=== PATIENT | male | born 1945 ===

== ENCOUNTER 2017-07-03 11:12 | Emergency (ER) | payer OTHER ==
[2017-07-03 11:33] VITALS: BP 137/67; PULSE 62; RESP 20; TEMP 97.1; O2SAT 97
[2017-07-03 11:34] VITALS: BMI 25.2
[2017-07-03] MEDS ORDERED: Tmp-Smz 800 mg-160 mg DS Tab PO STA (12:28)
--- NOTE | 2017-07-03 12:28 | ED PDOC ---
HPI: Skin/Bite Injury Time Seen by Provider: 07/03/17 11:58 Chief Complaint (Provider): Abscess History Per: Patient Additional Complaint(s): 72 yo male, PMH of DM and HTN, presents to ED for 5 days of red, swollen, painful mass to mid back. Past Medical History Reviewed: Nursing Documentation, Vital Signs Vital Signs: Last Vital Signs Temp 97.1 F L 07/03/17 11:33 Pulse 62 07/03/17 11:33 Resp 20 07/03/17 11:33 BP 137/67 07/03/17 11:33 Pulse Ox 97 07/03/17 12:27 - Medical History PMH: Diabetes, HTN - Surgical History Surgical History: No Surg Hx - Family History Family History: States: [place], Diabetes, Hypertension - Living Arrangements Living Arrangements: With Family - Social History Current smoker - smoking cessation education provided: No Alcohol: Social Drugs: Denies - Home Medications Home Medications: Ambulatory Orders Medication Instructions Recorded Cephalexin [Keflex] 500 mg PO BID #14 capsule 07/03/17 Ibuprofen [Motrin] 600 mg PO Q6 #20 tab 07/03/17 Sulfamethoxazole/Trimethoprim 1 tab PO BID 5 Days tab 07/03/17 [Bactrim DS 800 mg-160 mg] - Allergies Allergies/Adverse Reactions: Allergies Allergy/AdvReac Type Severity Reaction Status Date / Time No Known Allergies Allergy Verified 07/03/17 12:16 Review of Systems ROS Statement: Except As Marked, All Systems Reviewed And Found Negative Skin: Positive for: Other (abscess) Physical Exam - Reviewed Nursing Documentation Reviewed: Yes Vital Signs Reviewed: Yes - Physical Exam Appears: Positive for: Well, Non-toxic, No Acute Distress Head Exam: Positive for: ATRAUMATIC, NORMAL INSPECTION, NORMOCEPHALIC Skin: Positive for: Warm, Dry Eye Exam: Positive for: EOMI, Normal appearance, PERRL ENT: Positive for: Normal ENT Inspection Neck: Positive for: Normal, Painless ROM Cardiovascular/Chest: Positive for: Regular Rate, Rhythm Respiratory: Positive for: CNT, Normal Breath Sounds Gastrointestinal/Abdominal: Positive for: Normal Exam, Bowel Sounds, Soft Back: Positive for: Normal Inspection Extremity: Positive for: Normal ROM Neurologic/Psych: Positive for: Alert, Oriented Comments: Tender, non fluctuant, erythematous mass to back ~ 10 cm in diameter. centralized pustuale - ECG O2 Sat by Pulse Oximetry: 97 Medical Decision Making Medical Decision Making: Site incised and drained of small amount of puss, see procedure note Disposition - Clinical Impression Clinical Impression: Abscess - Patient ED Disposition Is Patient to be Admitted: No - Disposition Disposition: Routine/Home Disposition Time: 13:16 Condition: STABLE Prescriptions: Cephalexin [Keflex] 500 mg PO BID #14 capsule Ibuprofen [Motrin] 600 mg PO Q6 #20 tab Sulfamethoxazole/Trimethoprim [Bactrim DS 800 mg-160 mg] 1 tab PO BID 5 Days tab Instructions: Abscess (ED) Print Language: ICELANDIC - Incision & Drainage Of Abscess Anesthesia: Lidocaine 1% Prep Used: Sterile Water Procedure: Incised W/Scalpel Blade#: (11), Drained Pus, Irrigated Cavity W/ Saline
[2017-07-03] MEDS ORDERED: Lidocaine 1% Inj (20ml) ONE (12:44)
== END 2017-07-03 13:32 | disposition home or self-care (01) ==
LOC: H.ER 11:12
DX: L02.212 Cutaneous abscess of back [any part, except buttock and flank] (principal); E11.9 Type 2 diabetes mellitus without complications; I10 Essential (primary) hypertension

== ENCOUNTER 2017-07-09 09:46 | Emergency (ER) | payer OTHER ==
[2017-07-09 09:46] VITALS: BMI 25.2
[2017-07-09 09:51] VITALS: O2SAT 98
--- NOTE | 2017-07-09 10:24 | ED PDOC ---
HPI: Skin/Bite Injury Time Seen by Provider: 07/09/17 10:11 Chief Complaint (Nursing): Abnormal Skin Integrity History Per: Patient Onset/Duration Of Symptoms: Days (6) Current Symptoms Are (Timing): Better Location Of Injury: Posterior: Back Quality Of Symptoms: Itching Severity: Mild Additional Complaint(s): Seen 6 days ago for I&D abscess back. Placed on Bactrim and Keflex. Pt states improvement in size and pain. Denies fever. No new drainage. Past Medical History Vital Signs: Last Vital Signs Temp 98 F 07/09/17 09:50 Pulse 67 07/09/17 09:50 Resp BP 142/53 L 07/09/17 09:50 Pulse Ox 98 07/09/17 09:50 - Medical History PMH: Diabetes, HTN - Family History Family History: States: [place], Diabetes, Hypertension - Home Medications Home Medications: Ambulatory Orders Medication Instructions Recorded Cephalexin [Keflex] 500 mg PO BID #14 capsule 07/03/17 Ibuprofen [Motrin] 600 mg PO Q6 #20 tab 07/03/17 Sulfamethoxazole/Trimethoprim 1 tab PO BID 5 Days tab 07/03/17 [Bactrim DS 800 mg-160 mg] Cephalexin [Keflex] 500 mg PO BID #14 capsule 07/09/17 Sulfamethoxazole/Trimethoprim 1 tab PO BID #14 tab 07/09/17 [Bactrim DS 800 mg-160 mg] - Allergies Allergies/Adverse Reactions: Allergies Allergy/AdvReac Type Severity Reaction Status Date / Time No Known Allergies Allergy Verified 07/03/17 12:16 Review of Systems Constitutional: Negative for: Fever Skin: Positive for: Rash Physical Exam - Physical Exam Appears: Positive for: Non-toxic, No Acute Distress Skin: Positive for: Rash (3 cm area of erythema and induration mid back. Previuos note indicates area had been 10 cm. No fluctuance or drainage.) - ECG O2 Sat by Pulse Oximetry: 98 Medical Decision Making Medical Decision Making: Area ahas improved both subjectively as well as documented size with no fluctuance or drainage. Pt afebrile. Will Rx addl 1 week of Bactrim and Keflex with outpt f/u. Disposition - Clinical Impression Clinical Impression: Cellulitis - Patient ED Disposition Is Patient to be Admitted: No Counseled Patient/Family Regarding: Diagnosis, Need For Followup, Rx Given - Disposition Referrals: [facility] [Outside] Disposition: Routine/Home Disposition Time: 10:26 Condition: FAIR Prescriptions: Cephalexin [Keflex] 500 mg PO BID #14 capsule Sulfamethoxazole/Trimethoprim [Bactrim DS 800 mg-160 mg] 1 tab PO BID #14 tab Instructions: Cellulitis (ED) Print Language: MACEDONIAN
[2017-07-09 10:48] VITALS: BP 128/78; PULSE 78; RESP 17; TEMP 97.7
== END 2017-07-09 10:48 | disposition home or self-care (01) ==
LOC: H.ER 09:46
DX: E11.9 Type 2 diabetes mellitus without complications (principal); I10 Essential (primary) hypertension

== ENCOUNTER 2018-01-06 17:50 | Emergency (ER) | payer OTHER ==
[2018-01-06 17:50] VITALS: BMI 25.2
[2018-01-06 17:58] VITALS: BP 151/69; PULSE 73; RESP 16; TEMP 97.3; O2SAT 100
--- NOTE | 2018-01-06 18:57 | CT ---
PROCEDURE: CT HEAD WITHOUT CONTRAST. HISTORY: trauma COMPARISON: None available. TECHNIQUE: Axial computed tomography images were obtained through the head/brain without intravenous contrast. Radiation dose: Total exam DLP = 761.18 mGy-cm. This CT exam was performed using one or more of the following dose reduction techniques: Automated exposure control, adjustment of the mA and/or kV according to patient size, and/or use of iterative reconstruction technique. FINDINGS: HEMORRHAGE: No intracranial hemorrhage. BRAIN: Good corticomedullary differentiation is seen. Minimal, proportional diffuse expansion of the ventriculosulcal and cisternal spaces is appreciated with white matter lucency compatible with diffuse cerebral atrophy and chronic microangiopathy. No suspicious extra-axial fluid collection is identified and the midline brain anatomy appears grossly nonfocal as imaged. There is no mass effect throughout. VENTRICLES: Unremarkable. No hydrocephalus. CALVARIUM: No destructive bony lesion or displaced fracture identified including through the skullbase. PARANASAL SINUSES: Unremarkable as visualized. No significant inflammatory changes. MASTOID AIR CELLS: Unremarkable as visualized. No inflammatory changes. OTHER FINDINGS: None. IMPRESSION: No definite acute intracranial findings by standard CT criteria. Very limited age-related neuro degenerative changes are identified, age-appropriate.
--- NOTE | 2018-01-06 19:20 | CT ---
PROCEDURE: CT ORBITS WITHOUT CONTRAST. HISTORY: L eye trauma with hypema COMPARISON: None available. TECHNIQUE: Axial CT images of the orbits were obtained. Coronal and sagittal reformats were generated. Radiation dose: Total exam DLP = mGy-cm. This CT exam was performed using one or more of the following dose reduction techniques: Automated exposure control, adjustment of the mA and/or kV according to patient size, and/or use of iterative reconstruction technique. FINDINGS: RIGHT ORBIT: RIGHT BONY ORBIT: No fracture or destructive bony lesion. RIGHT INTRAORBITAL STRUCTURES: Globe: Normal. Extraocular muscles: Normal. Post septal space: Normal. Optic Nerve: Normal. Lacrimal Apparatus: Normal. RIGHT PRESEPTAL SOFT TISSUES: Normal. LEFT ORBIT: LEFT BONY ORBIT: No fracture or destructive bony lesion. LEFT INTRAORBITAL STRUCTURES: Globe: Normal. Extraocular muscles: Normal. Post septal space: Normal Optic Nerve: Normal. . Lacrimal Apparatus: Normal. LEFT PRESEPTAL SOFT TISSUES: Normal. OTHER: None. IMPRESSION: No fracture destructive bony lesion bilateral orbits. Orbits soft tissue anatomy appears intact and grossly nonfocal.
--- NOTE | 2018-01-06 19:21 | ED PDOC ---
HPI: Eye Injury/Pain Time Seen by Provider: 01/06/18 18:00 Chief Complaint (Nursing): Eye Problem History Per: Patient, Family (Daughter) History/Exam Limitations: no limitations Onset/Duration Of Symptoms: Days (x today) Current Symptoms Are (Timing): Still Present Additional Complaint(s): 72-year-old male presents to ED with left eye pain s/p garden hose accidentally struck him in the left eye, onset earlier today. Reports no loss of consciousness. Pt has been having pain to left eye. States he is unable to see anything but light. Denies nausea, vomiting. PmD: Nadeem Hernandez Past Medical History Reviewed: Historical Data, Nursing Documentation, Vital Signs Vital Signs: Last Vital Signs Temp 97.3 F L 01/06/18 17:55 Pulse 73 01/06/18 17:55 Resp 16 01/06/18 17:55 BP 151/69 H 01/06/18 17:55 Pulse Ox 100 01/06/18 17:55 - Medical History PMH: Diabetes, HTN, Hyperlipidemia - Family History Family History: States: [place], Diabetes, Hypertension - Home Medications Home Medications: Ambulatory Orders Medication Instructions Recorded Cephalexin [Keflex] 500 mg PO BID #14 capsule 07/03/17 Ibuprofen [Motrin] 600 mg PO Q6 #20 tab 07/03/17 Sulfamethoxazole/Trimethoprim 1 tab PO BID 5 Days tab 07/03/17 [Bactrim DS 800 mg-160 mg] Cephalexin [Keflex] 500 mg PO BID #14 capsule 07/09/17 Sulfamethoxazole/Trimethoprim 1 tab PO BID #14 tab 07/09/17 [Bactrim DS 800 mg-160 mg] Tramadol HCl [Ultram] 50 mg PO BID PRN #10 tablet 01/06/18 - Allergies Allergies/Adverse Reactions: Allergies Allergy/AdvReac Type Severity Reaction Status Date / Time No Known Allergies Allergy Verified 01/06/18 17:55 Review of Systems Eyes: Positive for: Pain (Left) Gastrointestinal: Negative for: Nausea, Vomiting Neurological: Positive for: Other (loss of consciousness) Physical Exam - Reviewed Nursing Documentation Reviewed: Yes Vital Signs Reviewed: Yes - Physical Exam Eye Exam: Positive for: EOMI, Other ((+) subconjunctival hemorrhage to left eye medial canthus, (+) Hyphema, (+) Unable to visualize pupil left eye) ENT: Positive for: Normal ENT Inspection Neck: Positive for: Normal Neurologic/Psych: Positive for: Alert, Oriented (x 3) - ECG O2 Sat by Pulse Oximetry: 100 (RA) Pulse Ox Interpretation: Normal Medical Decision Making Medical Decision Making: Time: 18:09 Plan: - Type and Screen - CT Head w/o Contrast - CT Orbits/ Facials w/o Contrast - CMP - CBC (with differential) - Partial Thromboplastin Time - Prothrombin Time Time: 18:55 CT Head w/o Contrast FINDINGS: HEMORRHAGE: No intracranial hemorrhage. BRAIN: Good corticomedullary differentiation is seen. Minimal, proportional diffuse expansion of the ventriculosulcal and cisternal spaces is appreciated with white matter lucency compatible with diffuse cerebral atrophy and chronic microangiopathy. No suspicious extra-axial fluid collection is identified and the midline brain anatomy appears grossly nonfocal as imaged. There is no mass effect throughout. VENTRICLES: Unremarkable. No hydrocephalus. CALVARIUM: No destructive bony lesion or displaced fracture identified including through the skullbase. PARANASAL SINUSES: Unremarkable as visualized. No significant inflammatory changes. MASTOID AIR CELLS: Unremarkable as visualized. No inflammatory changes. OTHER FINDINGS: None. IMPRESSION: No definite acute intracranial findings by standard CT criteria. Very limited age-related neuro degenerative changes are identified, age-appropriate. Time: 19:18 CT Orbits/ Facials w/o Contrast FINDINGS: RIGHT ORBIT: RIGHT BONY ORBIT: No fracture or destructive bony lesion. RIGHT INTRAORBITAL STRUCTURES: Globe: Normal. Extraocular muscles: Normal. Post septal space: Normal. Optic Nerve: Normal. Lacrimal Apparatus: Normal. RIGHT PRESEPTAL SOFT TISSUES: Normal. LEFT ORBIT: LEFT BONY ORBIT: No fracture or destructive bony lesion. LEFT INTRAORBITAL STRUCTURES: Globe: Normal. Extraocular muscles: Normal. Post septal space: Normal Optic Nerve: Normal. . Lacrimal Apparatus: Normal. LEFT PRESEPTAL SOFT TISSUES: Normal. OTHER: None. IMPRESSION: No fracture destructive bony lesion bilateral orbits. Orbits soft tissue anatomy appears intact and grossly nonfocal. 18:24 PA discussed case with Dr. Teixeira (Opthamologist retention representative) who recommends checking IOP agrees with CT orders. Dr. Teixeira request to be called back. Patient evaluated by Dr. Topete who agrees with plan. Texted pictures of patient eyes to Dr. Teixeira ([phone]). 19:21 Tonometer in ED is not working. No pressures taken. Dr. Teixeira informed of inability to obtain IOP and states pt can follow up with his office tomorrow in the morning. Patient is to be prescribed Tobradex Eye Drops 2 drops every 6 hours for 7 days. PA expressed concern for hyphema. Dr. Teixeira reassured pt does not require emergent [id number] contact by him now nor does he require admission for treatment for hyphema/patient's injury. Dr. Teixeira reassured patient can be discharged and can follow up in his office. Plan discussed with patient and patient's daughter (Amina) using conference manager Tracie. They given strict instructions and told to follow up with Dr. Teixeira in the morning. Given instructions for use of Tobradex (med given in ED). Pt and Amina verbalized understanding of importance of follow up and to return to ED immediately if symptoms worsen or if decreased range of motion of eye noted. Case d/w Dr. Topete and agrees. Scribe Attestation: Documented by Ilia Madrigal, acting as a scribe for Bulmaro Lopez PA-C Provider Scribe Attestation: All medical record entries made by the Scribe were at my direction and personally dictated by me. I have reviewed the chart and agree that the record accurately reflects my personal performance of the history, physical exam, medical decision making, and the department course for this patient. I have also personally directed, reviewed, and agree with the discharge instructions and disposition. Disposition - Clinical Impression Clinical Impression: Hyphema, Subconjunctival hemorrhage - Patient ED Disposition Is Patient to be Admitted: No - Disposition Referrals: Walter Teixeira MD [Staff Provider] - [facility] [Outside] Disposition: Routine/Home Disposition Time: 20:04 Condition: STABLE Additional Instructions: FOLLOW UP WITH DR. TEIXEIRA TOMORROW WITHOUT FAIL. RETURN TO ED IMMEDIATELY IF SYMPTOMS WORSEN. TOBRADEX EYE DROPS 2 DROPS IN LEFT EYE EVERY 6 HOURS FOR 7 DAYS Prescriptions: Tramadol HCl [Ultram] 50 mg PO BID PRN #10 tablet PRN Reason: Other Instructions: Eye Contusion (DC), Subconjunctival Hemorrhage Forms: [employer] (Portuguese) Print Language: ETHIOPIAN
[2018-01-06] MEDS ORDERED: Dexamethasone/Tobramycin Ophth Susp OS STA (19:33)
== END 2018-01-06 20:53 | disposition home or self-care (01) ==
LOC: H.ER 17:50
DX: H11.32 Conjunctival hemorrhage, left eye (principal); H21.00 Hyphema, unspecified eye; W22.8XXA Striking against or struck by other objects, initial encounter; Y92.89 Other specified places as the place of occurrence of the external cause; E11.9 Type 2 diabetes mellitus without complications; E78.5 Hyperlipidemia, unspecified; I10 Essential (primary) hypertension